=== PATIENT | male | born 1975 | race Caucasian/White ===

== ENCOUNTER 2020-09-18 14:11 | Emergency (ER) | payer OTHER, SELFPAY ==
[2020-09-18 14:13] VITALS: BP 145/96; PULSE 90; RESP 18; TEMP 36.1; O2SAT 97; BMI 29.0
--- NOTE | 2020-09-18 15:55 | RAD_ITS ---
STUDY: X-RAY - LEFT HAND, ATTENTION THIRD FINGER REASON FOR EXAM: Male, 44 years old. INJURY TO LEFT FINGER. ATTENTION 3RD DIGIT. LACERATION TO ANTERIOR PORTION OF 3RD DIGIT. PATIENT INJURED FINGER AT WORK. TECHNIQUE: 3 view(s) of the finger were obtained. COMPARISON: None. FINDINGS: Normal metacarpal head. Normal metacarpophalangeal joint. Normal proximal phalanx. Normal middle phalanx. Normal distal phalanx. Normal proximal interphalangeal joint. Normal distal interphalangeal joint. There is no demonstrated fracture. RAD/Finger(s) Min 2 Views IMPRESSION: Normal x-ray examination of the finger. Electronically Signed: Daniel Johnson MD at 16:49 EDT , Service support ,
[2020-09-18] MEDS: Lidocaine 1% (20 ml mdv) 20 ML Vial 10 ML INFILT (16:20)
--- NOTE | 2020-09-18 16:23 | EX.ED.GENINJ ---
HPI History of Present Illness Chief Complaint: Laceration Informant: patient Narrative Narrative: 44-year-old male presents to the emergency department after a crush injury while at work. He notes injury to the left middle finger. He notes blood underneath the fingernail and a laceration over the volar surface. Tetanus Immunization: >10 years [facility] Medical History (Updated 09/18/20 @ 16:[address] Jovanni Aleman DO) Low testosterone in male Home Medications testosterone 50 mg IM 09/18/20 [History Last Taken Unknown] Allergy/AdvReac Type Severity Reaction Status Date / Time No Known Allergies Allergy Verified 09/18/20 14:15 no surgical history Social History (Updated 09/18/20 @ 16:[address] Jovanni Aleman DO) Smoking Status: Unknown if ever smoked substance use type: does not use ROS ROS ED Constitutional Constitutional ED: Denies chills or weight loss Eyes Eyes: Denies change in vision or diplopia ENT ENT ED: Denies ear pain, rhinorrhea or sore throat Cardiovascular Cardiovascular: Denies chest pain, orthopnea, palpitations or racing heartbeat Respiratory/Chest Respiratory/Chest: Denies cough, dyspnea or orthopnea Gastrointestinal Gastrointestinal: Denies abdominal pain, diarrhea, nausea or vomiting Genitourinary Genitourinary ED: Denies dysuria, hematuria or urinary frequency Musculoskeletal Musculoskeletal: Reports other Details: See history of present illness ; Denies arthralgias or myalgias Integumentary Denies abscess or rash Neurologic Neurologic: Denies headache(s) or weakness Psychiatric Psychiatric: Denies anxiety, depression, suicidal ideation or suicidal thoughts Endocrine Endocrinology: Denies polydipsia, polyphagia or polyuria Allergic/Immunologic Allergic/Immunologic ED: Denies mouth swelling, tongue swelling or urticaria EXAM Physical Exam Const Vital Signs: 09/18/20 14:13 Temperature 97 F L Temperature Source Temporal Pulse Rate 90 Respiratory Rate 18 Blood Pressure 145/96 H Blood Pressure Mean 112 Pulse Ox 97 Oxygen Delivery Method Room Air Positive well nourished and well developed General Appearance ED: well developed HEENT Reports normocephalic, head/scalp atraumatic and moist mucous membranes Eyes PERRL and EOMs intact bilaterally Neck no lymphadenopathy, supple and no JVD Resp normal respiratory effort and clear to auscultation bilaterally Cardio regular rate, regular rhythm and no murmurs GI normal to inspection, nondistended, normoactive bowel sounds and non-tender Palpation: soft Back/Spine no CVA tenderness and normal ROM Extremity Extremity Narrative: Left middle finger has full range of motion although painful. There is a 100% subungual hematoma. There is a 2.5 cm superficial skin flap/skin avulsion over the volar surface of the left middle finger starting at the DIP joint. Neurovascular intact General Extremety ED: Negative for edema General Extremity: Negative for edema Neuro oriented x3 and CN's II-XII intact bilaterally Sensorium / Orientation: alert Motor Exam: strength 5/5 throughout Psych mental status grossly normal Mood & Affect: Negative for depressed or tearful Skin no rashes or lesions noted and no wounds MDM MDM MDM Narrative Medical decision making narrative: Patient underwent digital block. I washed and explored the wound. The laceration/skin avulsion I do not believe can have anything done to it. It is just a epidermis. There is no active bleeding. Given how thin the skin is I do not think I will be able to place a stitch. We will dress it and have it heal by secondary intent. The subungual hematoma was drained using high temperature cautery. This achieved full resolution of the subungual hematoma. Tetanus will be updated. Wound care discussed with patient. Discharge Plan Triage Chief Complaint: Laceration ED Provider: Jovanni Aleman Dx/Rx/DC Orders Clinical Impression: Subungual hematoma of finger of left hand, Skin tear of left hand without complication, Avulsion of skin of finger Instructions: ED Skin Avulsion, ED Subungual Hematoma Prescriptions: No Action testosterone 50 mg/mL Solution 50 mg IM RF: 0 Primary Care Provider: Lety De Jesus,Out of Referrals: Lety De Jesus,Out of [Primary Care Provider] - Disposition Disposition: Home, Self Care
[2020-09-18] MEDS: Diphth,Pertuss(Acell),Tet Vac 0.5 ML Vial IM (16:36)
[2020-09-18 16:39] VITALS: RESP 17
== END 2020-09-18 16:47 | disposition home or self-care (01) ==
LOC: ED 16:44
PROVIDERS: Emergency Provider Emergency Medicine
DX: S61.213A Laceration without foreign body of left middle finger without damage to nail, initial encounter (principal); X58.XXXA Exposure to other specified factors, initial encounter
CPT/HCPCS: 73140; 90471; 90715; 99282